=== PATIENT | male | born 1950 | race African-American/Black ===

== ENCOUNTER 2023-10-03 12:10 | Emergency (ER) | payer BC ==
[~2023-10-03] VITALS: Ht 190.5 cm; Wt 127.0 kg
[~2023-10-03 12:10] MED LIST: ALBU6.7H15 INH; PANT40TA51 MT
[2023-10-03 12:22] VITALS: BP 148/99; PULSE 77; RESP 20; TEMP 98.4; O2SAT 98
[2023-10-03] MEDS: KETOROLAC 30MG/ML VIAL IM ONE (13:45)
[2023-10-03] MEDS: LIDOCAINE 5% PATCH TOP STA (14:00)
[2023-10-03] MEDS ORDERED: LIDO700A30 TP (16:40)
[2023-10-03] MEDS ORDERED: METH-773 MT (16:40)
[2023-10-03] MEDS ORDERED: DICL100G58 TP (16:40)
== END 2023-10-03 17:21 | disposition home or self-care (01) ==
LOC: ER 12:10
DX: M25.551 Pain in right hip (principal); M54.30 Sciatica, unspecified side; I10 Essential (primary) hypertension; Z98.890 Other specified postprocedural states
CPT/HCPCS: 99284; 73522; 72100; 96372; J1885